=== PATIENT | female | born 1985 ===

== ENCOUNTER 2017-04-02 18:07 | Emergency (ER) | payer SELFPAY ==
[2017-04-02 18:14] VITALS: O2SAT 98
--- NOTE | 2017-04-02 19:10 | ED PDOC ---
HPI: Chest Pain Time Seen by Provider: 04/02/17 18:21 Chief Complaint (Nursing): Chest Pain Chief Complaint (Provider): chest pain History Per: Patient History/Exam Limitations: no limitations Onset/Duration Of Symptoms: Days (3 weeks) Current Symptoms Are (Timing): Still Present Severity: Moderate Quality: "Pain" Associated Symptoms: Dyspnea. denies: Nausea, Diaphoresis, Syncope Exacerbating Factors: Turning, Movement, Deep Breathing Additional Complaint(s): Pain radiates from midsternum, below LEFT breast to shoulder, worse with LUE movement and deep breathing Concerned about heart and breast implants Denies trauma Also reports increased stress recently due to custody issues with her children. Denies h/o psychiatric disease. Past Medical History Reviewed: Historical Data, Nursing Documentation, Vital Signs Vital Signs: Last Vital Signs Temp 98 F 04/02/17 18:10 Pulse 84 04/02/17 18:10 Resp 20 04/02/17 18:10 BP 108/59 L 04/02/17 18:21 Pulse Ox 98 04/02/17 19:16 - Medical History PMH: Asthma - Surgical History Other surgeries: LEFT foot/bunion. Breast augmentation - Family History Family History: States: Diabetes - Social History Current smoker - smoking cessation education provided: No Alcohol: Occasional Drugs: Denies - Home Medications Home Medications: Ambulatory Orders Medication Instructions Recorded Cyclobenzaprine [Flexeril] 5 mg PO Q8 PRN #15 tab 04/02/17 Famotidine [Pepcid] 40 mg PO DAILY PRN #14 tab 04/02/17 Ibuprofen [Motrin Tab] 600 mg PO Q8 PRN #60 tab 04/02/17 - Allergies Allergies/Adverse Reactions: Allergies Allergy/AdvReac Type Severity Reaction Status Date / Time No Known Allergies Allergy Verified 04/02/17 18:10 Review of Systems ROS Statement: Except As Marked, All Systems Reviewed And Found Negative (and as per HPI) Constitutional: Positive for: Weakness, Malaise Cardiovascular: Positive for: Chest Pain, Light Headedness. Negative for: Palpitations Respiratory: Positive for: Pleuritic Pain. Negative for: Cough, Shortness of Breath Gastrointestinal: Negative for: Nausea Physical Exam - Reviewed Nursing Documentation Reviewed: Yes Vital Signs Reviewed: Yes - Physical Exam Appears: Positive for: Well, In Acute Distress Head Exam: Positive for: ATRAUMATIC, NORMOCEPHALIC Skin: Positive for: Warm, Dry, Pallor Eye Exam: Positive for: EOMI, PERRL ENT: Negative for: Pharyngeal Erythema, Tonsillar Exudate Neck: Positive for: Painless ROM, Supple Cardiovascular/Chest: Positive for: Regular Rate, Rhythm, Other (ttp LEFT anterior inferior wall and sternal area). Negative for: Edema, Murmur Respiratory: Positive for: Normal Breath Sounds. Negative for: Rales, Rhonchi, Wheezing, Respiratory Distress Gastrointestinal/Abdominal: Positive for: Soft. Negative for: Tenderness, Mass , Distended, Guarding Back: Positive for: Normal Inspection. Negative for: Vertebral Tenderness Extremity: Positive for: Normal ROM. Negative for: Pedal Edema Lymphatic: Negative for: Adenopathy Neurologic/Psych: Positive for: Alert. Negative for: Motor/Sensory Deficits - Laboratory Results Result Diagrams: 04/02/17 19:15 04/02/17 19:15 Interpretation Of Abn Labs: Labs unremarkable. - ECG ECG: Positive for: Interpreted By Tx ECG Rhythm: Positive for: Normal QRS, Normal ST Segment, Sinus Rhythm (83) O2 Sat by Pulse Oximetry: 98 Pulse Ox Interpretation: Normal - Radiology X-Ray: Interpreted by Tx X-Ray Interpretation: No Acute Disease Disposition - Clinical Impression Clinical Impression: Chest pain Counseled Patient/Family Regarding: Studies Performed, Diagnosis, Need For Followup, Rx Given - Disposition Referrals: [facility] [Outside] [facility] [Outside] Disposition: Routine/Home Disposition Time: 20:30 Condition: IMPROVED Additional Instructions: PLEASE FOLLOW UP WITH CLINIC FOR REEVALUATION. CONSIDER [facility] FOR ANY SEVERE ANXIETY. Prescriptions: Cyclobenzaprine [Flexeril] 5 mg PO Q8 PRN #15 tab PRN Reason: muscle spasm Famotidine [Pepcid] 40 mg PO DAILY PRN #14 tab PRN Reason: reflux Ibuprofen [Motrin Tab] 600 mg PO Q8 PRN #60 tab PRN Reason: Pain, Moderate (4-7) Instructions: Costochondritis (ED), Stress (ED)
[2017-04-02 19:31] LABS: BASO # 0.1 K/uL (0.0-0.2); BASO % 0.7 % (0.0-2.0); EOS # 0.1 K/uL (0.0-0.7); HEMATOCRIT 41.5 % (34.0-47.0); LYMPH # 1.9 K/uL (1.0-4.3); LYMPH % 27.1 % (20.0-40.0); MEAN CELL VOLUME 90.6 fl (81.0-99.0); MEAN CORPUSCULAR HEMOGLOBIN 29.4 pg (27.0-31.0); MEAN CORPUSCULAR HGB CONC 32.4 g/dL (33.0-37.0); MEAN PLATELET VOLUME 9.1 fl (7.2-11.7); MONO # 0.7 K/uL (0.0-0.8); MONO % 9.6 % (0.0-10.0); NEUT # 4.3 K/uL (1.8-7.0); NEUT % 60.6 % (50.0-75.0); NRBC % 0.1 % (0.0-0.0); RED CELL DISTRIBUTION WIDTH 13.6 % (11.5-14.5); WHITE BLOOD COUNT 7.2 K/uL (4.8-10.8)
[2017-04-02 19:47] LABS: ALB/GLOB RATIO 1.3 (1.0-2.1); ALKALINE PHOSPHATASE 54 U/L (38-126); ALT/SGPT 32 U/L (9-52); AST/SGOT 27 U/L (14-36); BILIRUBIN,TOTAL 0.4 mg/dl (0.2-1.3); BLOOD UREA NITROGEN 14 mg/dl (7-17); CALCIUM 9.1 mg/dL (8.4-10.2); CARBON DIOXIDE 24 mmol/L (22-30); CHLORIDE 107 mmol/L (98-107); GFR AFRICAN-AMERICAN > 60; GLUCOSE,RANDOM 102 mg/dL (65-105); MAGNESIUM 1.9 MG/DL (1.6-2.3); SODIUM 140 mmol/l (132-148); TOTAL PROTEIN 7.2 G/DL (6.3-8.2)
[2017-04-02 20:16] LABS: THYROID STIMULATING HORMONE 1.58 mIU/ML (0.46-4.68)
[2017-04-02 21:38] VITALS: BP 122/78; PULSE 76; RESP 14; TEMP 97.9
--- NOTE | 2017-04-03 09:32 | RAD ---
HISTORY: cp COMPARISON: No prior. TECHNIQUE: Chest PA and lateral FINDINGS: LUNGS: No active pulmonary disease. PLEURA: No significant pleural effusion identified. No pneumothorax apparent. CARDIOVASCULAR: Normal. OSSEOUS STRUCTURES: No significant abnormalities. VISUALIZED UPPER ABDOMEN: Normal. OTHER FINDINGS: None. IMPRESSION: No active disease.
--- NOTE | 2017-04-03 14:42 | CARD ---
APPROVED REPORT EKG Measurement Heart [id number] <Conclusion> Normal sinus rhythm with sinus arrhythmia Normal ECG
== END 2017-04-02 21:38 | disposition home or self-care (01) ==
LOC: H.ER 18:07
DX: R07.9 Chest pain, unspecified (principal); J45.909 Unspecified asthma, uncomplicated
CPT/HCPCS: 71020; 80053; 81025; 83735; 84100; 84443; 84484; 85025; 85378; 86850; 86900; 93005; 96374; 99283; J1885